=== PATIENT | female | born 1995 | race Caucasian/White ===

== ENCOUNTER → 2021-10-11 | Outpatient (CLI) | payer BC, OTHER ==
[~2021-10-11] MED LIST: BUSPIRONE HCL7.5 MG PO; HUMALOG100 UNIT/1 SC; TOPAMAX25 MG PO; TYLENOL EXTRA500 MG PO
[2021-10-11 12:58] LABS: HEMOGLOBIN 14.2 gm/dl (12.3-15.3); RED BLOOD COUNT 4.7 M/UL (4.00-5.10); WHITE BLOOD COUNT 8.6 K/UL (4.5-11.0)
[2021-10-11 13:35] LABS: BUN/CREATININE RATIO 16 (0-10)
== END ==
LOC: OPSV2 12:24
PROVIDERS: Obstetrics & Gynecology
DX: Z01.812 Encounter for preprocedural laboratory examination (principal); N94.6 Dysmenorrhea, unspecified
CPT/HCPCS: 36415; 80053; 81001; 85025

== ENCOUNTER → 2021-10-19 | Day surgery (SDC) | payer BC, OTHER ==
[~2021-10-19] MED LIST changes: +COLACE 100MG C100 MG PO; +FLONASE ALLER15.8 ML; +HYDROCODON-ACE1 EAC6 PO; +IBUPROFEN600 MG PO
== END | disposition home or self-care (01) ==
LOC: OR 07:00
DX: N93.9 Abnormal uterine and vaginal bleeding, unspecified (principal); N94.6 Dysmenorrhea, unspecified; K21.9 Gastro-esophageal reflux disease without esophagitis; E66.9 Obesity, unspecified; E10.65 Type 1 diabetes mellitus with hyperglycemia; Z68.28 Body mass index [BMI] 28.0-28.9, adult; Z79.899 Other long term (current) drug therapy
CPT/HCPCS: 82962; 84703; J1100; J1885; J2001; J2250; J2405; J2704; J2795; J3010; J7030; J7120